=== PATIENT | female | born 1950 | race Caucasian/White ===

== ENCOUNTER → 2017-09-27 12:49 | Outpatient (CLI) | payer MEDICARE, BC ==
[2011-05-22 10:10] VITALS: BMI 29.7
== END | disposition home or self-care (01) ==
LOC: D.MAMMO 08-29 11:45
DX: Z12.31 Encounter for screening mammogram for malignant neoplasm of breast (principal)

== ENCOUNTER → 2017-11-02 22:49 | Outpatient (CLI) | payer MEDICARE, BC ==
[2011-05-22 10:10] VITALS: BMI 29.7
== END | disposition home or self-care (01) ==
LOC: D.MAMMO 10:00
DX: R92.8 Other abnormal and inconclusive findings on diagnostic imaging of breast (principal)

== ENCOUNTER 2018-06-10 19:00 | Outpatient (CLI) | payer MEDICARE, BC ==
[2011-05-22 10:10] VITALS: BMI 29.7
== END 2018-06-10 23:59 | disposition home or self-care (01) ==
LOC: D.MAMMO 19:00
DX: R92.8 Other abnormal and inconclusive findings on diagnostic imaging of breast (principal)